=== PATIENT | female | born 1995 | race Caucasian/White ===

== ENCOUNTER 2017-06-02 21:02 | Inpatient (IN) | payer BC ==
[~2017-06-02] VITALS: Ht 162.6 cm; Wt 88.3 kg
[~2017-06-02 21:02] MED LIST: IBU800 M1 PO; PERCOCET 325 MG1 TA2 PO; PRENATA1 CTB PO; PROCARDIA XL 3030 MG PO; PROCARDIA XL90 MG PO
[2017-06-02 21:45] LABS: PH 6 (5-8); SQUAMOUS EPITHELIAL 0-2 /hpf; URINE APPEARANCE Clear; URINE BACTERIA Rare /hpf; URINE BILIRUBIN Negative (NEGATIVE); URINE BLOOD Negative (NEGATIVE); URINE COLOR Yellow; URINE GLUCOSE Negative (NEGATIVE); URINE KETONE Negative (NEGATIVE)
[2017-06-02 21:57] LABS: BASO % 0.3 % (0.0-2.0); EOS # 0.1 (0.0-0.7); EOS % 0.7 % (0-4.0); GRAN % 70.8 % (42.2-75.2); HEMATOCRIT 36.7 % (35.0-45.0); HEMOGLOBIN 12.2 g/dl (12.0-15.0); LYMPH # 1.9 (1.2-3.4); LYMPH % 19.5 % (20.0-51.0); MEAN CELL VOLUME 89 fl (80.0-95.0); MEAN CORPUSCULAR HEMOGLOBIN 30 pg (26.0-32.0); MEAN CORPUSCULAR HGB CONC 33 g/dl (33.0-37.0); MEAN PLATELET VOLUME 8.8 fl (7.4-10.4); MONO # 0.8 (0.1-0.6); MONO % 8.4 % (1.7-9.3); PLATELET COUNT 399 K/mm3 (130-400); RED BLOOD COUNT 4.11 M/mm3 (4.10-5.30); REDCELL DISTRIBUTION WIDTH-CV 13.7 % (11.5-14.5); WHITE BLOOD COUNT 9.8 K/mm3 (4.8-10.8)
[2017-06-02 22:05] LABS: ADJUSTED CALCIUM 8.8 mg/dL (8.4-10.2); ALBUMIN 3.9 gm/dL (3.5-5.0); BILIRUBIN,TOTAL 0.3 mg/dL (0.0-1.0); CALCIUM 8.7 mg/dL (8.4-10.2); CREATININE, serum 0.5 mg/dL (0.52-1.25); POTASSIUM 3.6 mmol/L (3.4-5.0); TOTAL PROTEIN 7.6 gm/dL (6.4-8.2)
[2017-06-03 00:14] VITALS: BP 134/74; PULSE 122
[2017-06-03 00:40] VITALS: BP 119/74; PULSE 116; TEMP 98.8
[2017-06-03 04:14] VITALS: BP 105/63; PULSE 85; TEMP 98.2
[2017-06-03] MEDS ORDERED: PRENATAL PLUS PO (06:57)
[2017-06-03 07:54] VITALS: BP 138/75; PULSE 116; TEMP 98.8
[2017-06-03 12:06] VITALS: BP 123/62; PULSE 115; TEMP 98.3
== END 2017-06-03 16:10 | disposition home or self-care (01) | DRG 774 ==
LOC: COL.ER 21:02 → MEDICAL 22:46
PROVIDERS: Emergency Medicine
DX: O99.42 Diseases of the circulatory system complicating childbirth (principal); I47.1 Supraventricular tachycardia; Z3A.20 20 weeks gestation of pregnancy
CPT/HCPCS: J7030

== ENCOUNTER → 2017-09-07 | Outpatient (CLI) | payer BC, OTHER ==
[~2017-09-07] VITALS: Ht 162.6 cm; Wt 90.0 kg
[~2017-09-07] MED LIST changes: +COLACE 100100 MG/CAP; +NATURAL IRON65 MG; +PRENATAL MVI; +PRENATAL PLUS PO; +TRANDATE 100MG100 MG
[2017-09-07 12:31] VITALS: BP 128/69; PULSE 131; TEMP 98.8
[2017-09-07 12:45] VITALS: BP 129/78; PULSE 105
== END ==
LOC: LDRO 12:17
DX: O62.9 Abnormality of forces of labor, unspecified (principal); Z3A.31 31 weeks gestation of pregnancy

== ENCOUNTER 2017-10-18 03:01 | Inpatient (IN) | payer BC ==
[2017-10-18] VITALS (13 sets, daily range): BP systolic 111–144; BP diastolic 60–91; PULSE 81–112; TEMP 97.7–98.5
[~2017-10-18] VITALS: Ht 162.6 cm; Wt 93.6 kg
[2017-10-18 04:20] LABS: BASO % 0.1 % (0.0-2.0); EOS # 0.1 (0.0-0.7); EOS % 0.8 % (0-4.0); GRAN # 9.9 (1.4-6.5); GRAN % 74.1 % (42.2-75.2); HEMATOCRIT 37.4 % (35.0-45.0); HEMOGLOBIN 12.2 g/dl (12.0-15.0); LYMPH # 2.6 (1.2-3.4); LYMPH % 19.4 % (20.0-51.0); MEAN CELL VOLUME 89 fl (80.0-95.0); MEAN CORPUSCULAR HEMOGLOBIN 29 pg (26.0-32.0); MEAN CORPUSCULAR HGB CONC 33 g/dl (33.0-37.0); MEAN PLATELET VOLUME 9.4 fl (7.4-10.4); MONO # 0.7 (0.1-0.6); MONO % 5.2 % (1.7-9.3); PLATELET COUNT 460 K/mm3 (130-400); RED BLOOD COUNT 4.21 M/mm3 (4.10-5.30); REDCELL DISTRIBUTION WIDTH-CV 16.2 % (11.5-14.5)
[2017-10-19 07:57] VITALS: BP 127/78; PULSE 74; TEMP 98.1
[2017-10-19] MEDS ORDERED: IBU600 MG PO (09:34)
[2017-10-19] MEDS ORDERED: PERCOCET 325 MG1 TA2 PO (09:34)
== END 2017-10-19 12:20 | disposition home or self-care (01) | DRG 775 ==
LOC: LDRO 03:01 → LDR 03:32 → OB 03:32
PROVIDERS: Obstetrics & Gynecology
PROC: 10E0XZZ Delivery of Products of Conception, External Approach (ICD-10-PCS; principal; 2017-10-18)
PROC: 0HQ9XZZ Repair Perineum Skin, External Approach (ICD-10-PCS; 2017-10-18)
DX: O13.4 Gestational [pregnancy-induced] hypertension without significant proteinuria, complicating childbirth (principal); I47.1 Supraventricular tachycardia; O66.0 Obstructed labor due to shoulder dystocia; O69.81X0 Labor and delivery complicated by cord around neck, without compression, not applicable or unspecified; Z3A.39 39 weeks gestation of pregnancy; Z37.0 Single live birth
CPT/HCPCS: J2590

== ENCOUNTER → 2020-03-11 | Outpatient (CLI) | payer BC, OTHER ==
[~2020-03-11] MED LIST changes: +IBU600 MG PO
== END ==
LOC: ZCOL.LAB 14:26
DX: R50.9 Fever, unspecified (principal); R07.0 Pain in throat; Z20.828 Contact with and (suspected) exposure to other viral communicable diseases